=== PATIENT | male | born 1975 ===

== ENCOUNTER 2019-02-06 08:48 | Day surgery (SDC) | payer OTHER ==
[2019-02-06 09:30] VITALS: BP 133/77
[2019-02-06] MEDS ORDERED: Lidocaine 1% INJ* 10 MG/ML 30 ML SDV ONE (10:14)
[2019-02-06] MEDS ORDERED: Bupivacaine 0.5% W/EPI SDV* 30 ML VIAL ONE (10:14)
[2019-02-06] MEDS ORDERED: Bacitracin OPHTH.OINT* 3.5 GM ONE (11:58)
[2019-02-06] MEDS ORDERED: Bacitracin OINTMENT* 0.5% 0.5 oz TUBE ONE (11:58)
--- NOTE | 2019-02-06 12:29 | BRIEFOPN ---
Brief Operative Note - Surgery Procedures: Pre-OP Diagnoses: r forearm lesion Post-op Diagnosis: same Procedure: excision of right forearm sebaceous cyst Surgeon: Ralph Asst: none Anethesia: local EBL: minimal IVF: none Specimen: cyst wall Drains: none
--- NOTE | 2019-02-06 15:06 | OP ---
CC: Primary Care Doctor, ERNESTO Contreras * DATE OF OPERATION: 02/06/19 - [facility] DATE OF : 75 SURGEON: aCyden Rosas MD. SCHEDULE ANNOUNCER: None. ANESTHESIA: Local anesthesia. PRE-OP DIAGNOSIS: Right forearm lesion consistent with lipoma. POST-OP DIAGNOSIS: Right forearm lesion consistent with sebaceous cyst. OPERATIVE PROCEDURE: Excision of right forearm lesion, sebaceous cyst. ESTIMATED BLOOD LOSS: Minimal blood loss. FLUIDS: No crystalloid fluid given. SPECIMEN: Cyst wall from a sebaceous cyst of the right forearm. DRAINS: None. DESCRIPTION OF PROCEDURE: The patient was identified in the preoperative area. The lesion was identified. It was marked. He was brought to the operating room , placed on the operating table in the supine position. Sequential devices were placed on bilateral lower extremities. No antibiotics were delivered. No anesthesia was delivered. The patient's right forearm was prepped and draped in standard surgical fashion. A time-out was performed. After injection of lidocaine, incision was made overlying this lesion. We promptly got into a cyst wall, and sebum and thin fluid were evacuated. Ended up opening up the cyst and that had been approximately 4 x 3 x 3 cm and removed all the sebum. There was no active pus. This was really not foul smelling. Next, the wall was elevated out of the incision and sharp dissection was carried out to remove the cyst wall in its entirety. We then irrigated. There was lot of oozing throughout. This was controlled with electrocautery, but then in the end, we saw continued oozing. It was not remarkable, and I closed the incision with 3-0 nylon sutures in a mattress fashion followed by antibiotic ointment and a compression dressing. The patient tolerated the procedure well, was transferred to the PACU in stable condition. [id number]/[facility] #: [id number] [facility]ITALJossue
== END 2019-02-06 12:37 | disposition home or self-care (01) ==
LOC: OR 08:48
PROVIDERS: ATTEND Surgery
DX: L72.0 Epidermal cyst (principal); F17.210 Nicotine dependence, cigarettes, uncomplicated
CPT/HCPCS: 88304; A9270-GY